=== PATIENT | female | born 1945 | race Two or more races ===

== ENCOUNTER 2021-01-13 09:30 | Outpatient (REF) | payer BC, OTHER, SELFPAY ==
--- NOTE | ~2021-01-13 | XR_ITS ---
EXAMINATION: XR SHOULDER, RIGHT CLINICAL INFORMATION: Right shoulder pain. Prior fracture. COMPARISON: None TECHNIQUE: Right shoulder is imaged in 3 views. FINDINGS: There is old healed fracture with posttraumatic deformity involving the proximal humeral shaft. This has been reduced with intramedullary mariana and 2 proximal interlocking prior studies. The distal end of the hardware is the on the [id number]. There is no osteolysis or destructive process. The glenohumeral joint is unremarkable. The acromioclavicular alignment is normal. There is some mild spurring from the lateral acromium likely origin deltoid. No visible rotator cuff calcifications. Right lung apex clear. XR/XR shoulder RT min 2V IMPRESSION: Old posttraumatic deformity with open reduction internal fixation proximal humeral shaft. Visualized hardware intact. Distal hardware beyond field of view. No visible rotator cuff calcification.
== END 2021-01-13 09:31 | disposition home or self-care (01) ==
LOC: HO.XRAY 09:30
PROVIDERS: PCP Internal Medicine Geriatric Medicine; Visit Provider Internal Medicine Geriatric Medicine
DX: M25.511 Pain in right shoulder (principal); S42.201S Unspecified fracture of upper end of right humerus, sequela; Z98.890 Other specified postprocedural states
CPT/HCPCS: 73030

== ENCOUNTER 2021-07-01 08:42 | Emergency (ER) | payer MEDICARE, OTHER, SELFPAY ==
--- NOTE | ~2021-07-01 | XR_ITS ---
EXAMINATION: XR RIBS, RIGHT CLINICAL INFORMATION: Right-sided rib pain COMPARISON: None TECHNIQUE: 3 views of the right ribs were obtained. FINDINGS: The cardiac and mediastinal contours are normal. The lungs are clear. There is no pleural effusion or pneumothorax. There are degenerative changes of the thoracic spine. There is an old healed fracture of the right proximal humeral shaft and orthopedic hardware intramedullary mariana and 2 proximal screws. No rib fracture is seen. XR/XR ribs RT min 3V w CXR1V IMPRESSION: No evidence for acute disease in the chest. No rib fracture seen.
--- NOTE | ~2021-07-01 | CT_ITS ---
EXAMINATION: CT ANGIOGRAM OF THE CHEST WITH AND WITHOUT CONTRAST (CT PULMONARY ANGIOGRAM FOR PE) CLINICAL INFORMATION: Reason for Exam right sided plueritic CP. pedal edema. hx breast CA COMPARISON: Radiographs from today. No prior CT. TECHNIQUE: Prior to contrast administration, noncontrast localization images were obtained. Subsequently, multidetector volumetric imaging was performed from the thoracic inlet to below the diaphragms following the administration of 65 mL Omnipaque 350 intravenous contrast. No contrast reaction reported Sagittal, coronal, and MIP oblique sagittal reformatted images were obtained on the CT workstation, uploaded to PACS, and reviewed. This CT examination was performed using dose optimization techniques as appropriate, variously including the following: *Automated exposure control *Adjustment of mA and/or kV according to patient size (this includes techniques or standardized protocols for targeted exams where dose is matched to indication/reason for exam; i.e. extremities or head) *Use of iterative reconstruction technique Total exam dose-length product 260 mGy-cm FINDINGS: QUALITY OF STUDY/CONTRAST BOLUS: Satisfactory. PULMONARY ARTERIES: No central or segmental pulmonary emboli. THORACIC AORTA: No aneurysm or dissection. LUNG: No focal consolidation, nodules or masses. The central airways are patent. Minimal dependent atelectasis bilaterally. PLEURA: No pleural effusion or pneumothorax. MEDIASTINUM: Normal heart size. No pericardial effusion. No hilar or mediastinal lymphadenopathy. No evidence of septal bowing or right heart strain. CHEST WALL/AXILLA: No axillary or internal mammary lymphadenopathy. OSSEOUS STRUCTURES: No acute or suspicious osseous abnormality. Degenerative changes noted throughout the spine. UPPER ABDOMEN: Unremarkable. No reflux of contrast into the hepatic veins to suggest elevated right heart pressures. CT/CT angio chest PE protocol IMPRESSION: No pulmonary embolism or other acute intrathoracic abnormality. VTE: negative
[2021-07-01 09:42] VITALS: BP 161/62; PULSE 80; RESP 18; TEMP 35.9; O2SAT 98; BMI 30.3
--- NOTE | 2021-07-01 10:54 | ECG_ITS ---
Test Reason : RIGHT SIDE RIB PAIN Blood Pressure : / mmHG Vent. Rate : 081 BPM Atrial Rate : 081 BPM P-R Int : 136 ms QRS Dur : 088 ms QT Int : 372 ms P-R-T Axes : 054 016 003 degrees QTc Int : 432 ms Normal sinus rhythm Normal ECG No previous ECGs available Referred By: Perla Santiago Electronically Signed By:Valdemar Shelley
--- NOTE | 2021-07-01 11:47 | ED_ITS ---
HPI - General Adult General Chief complaint: General Medical Stated complaint: rib inflammation-sent from [facility] Time Seen by Provider: 07/01/21 10:18 Source: patient Mode of arrival: ambulatory History of Present Illness HPI narrative: 76-year-old female with a past medical history breast CA in remission presenting to the ED complaining of a right sided rib pain x1 week worse with deep inspiration, coughing, movement, breathing. Denies known injury/trauma/fall. Patient also reports pedal/body edema/swelling, has been taking prednisone x2-3 months for new diagnosis of giant cell arteritis. Denies SOB, fever, cough, recent travel, history blood clots, cigarette smoking Onset (ago): week(s) Related Data Previous Rx's Medication Instructions Recorded acetaminophen 500 mg tablet 500 mg PO Q6H PRN #20 tab 07/01/21 (Tylenol Extra Strength) lidocaine 5 % topical patch 1 patch TOPICAL DAILY PRN #30 ea 07/01/21 (Lidoderm) MDD remove after 12 hours Allergies Allergy/AdvReac Type Severity Reaction Status Date / Time aspirin Allergy Unknown Verified 05/16/18 00:00 penicillin G Allergy Unknown Verified 05/16/18 00:00 Review of Systems Review of Systems: Constitutional: No Fever, No Chills, No Fatigue, No Malaise ENT/Mouth: No Ear Pain, No Nasal Congestion, No sore throat, No Rhinorrhea Eyes: No Eye Pain, No Swelling, No Redness Cardiovascular: + Chest Wall Pain, No SOB, No Edema, No Palpitations Respiratory: No Cough, No Dyspnea Gastrointestinal: No Nausea, No Vomiting, No Diarrhea, No Constipation, No Abd ominal pain Genitourinary: No Dysuria, No Hematuria, No Flank Pain Musculoskeletal: No joint pain, No Myalgias, No Joint Swelling Skin: No Skin Lesions, No rash Neuro: No Weakness, No Numbness, No Paresthesias, No Headache Yes all other systems are reviewed and are negative [facility] Past Medical History Attestation statement: The following information was validated with the patient. Social History Social History Advance Directives: Yes Advance Directives Information Provided: No Advance Directives on File: No Physical Exam Vital Signs: Vital Signs: Last Vital Signs Temp 97.9 F 07/01/21 16:49 Pulse 76 07/01/21 16:49 Resp 18 07/01/21 16:49 BP 150/74 H 07/01/21 16:49 Pulse Ox 97 07/01/21 16:49 BMI result Body Mass Index 30.3 Const: General: cooperative and healthy appearing Orientation/consciousness: patient oriented x3 Limitations: no limitations HENMT: Head: Yes normal to inspection Ears: hearing grossly normal bilaterally General nose exam: Normal external nose present Face and sinus: Yes normal facial exam Eyes: General: appearance normal, both eyes and all related structures EOM: EOMs intact bilaterally Neck: Neck: Yes normal visual inspection and Yes no meningeal signs Chest: Other: + right-sided lateral chest wall tenderness to palpation reproducing subjective complaint. No appreciable deformity/ecchymosis or erythema. No crepitus Chest palpation & inspection: no crepitus and tenderness Resp: Effort & Inspection: normal respiratory effort and not tachypneic Auscultation: clear to auscultation bilaterally, no crackles, no rales, no rhonchi and no wheezes Cardio: Rate: regular rate Heart sounds: S1 normal heart sound present and S2 normal heart sound present GI: Inspection: Yes normal to inspection Palpation (GI): Soft to palpation, nontender, no guarding and not rigid : General: Yes no CVA tenderness Back/Spine/Pelvis: Back: no CVA tenderness Skin: Rashes: no rashes Wounds: no wounds Neuro: General: patient oriented x3 and no meningeal signs Gait exam (Neuro): Normal gait present Extrem: Other: + bilateral pitting pedal edema General: Yes normal to inspection Course Course Course Narrative: XR ribs RT min 3V w CXR1V IMPRESSION: No evidence for acute disease in the chest. No rib fracture seen. -1250-- noted leukocytosis of 19.3 likely from current prednisone use rather than severe sepsis. No evidence of infection at this time. UA added. Will obtain lactic/ blood cultures. -initial troponin 40.7 > will obtain 3 hour repeat -1357--CT angio chest PE protocol IMPRESSION: No pulmonary embolism or other acute intrathoracic abnormality. VTE: negative -1418--lactic acidosis of 2.9 likely from Metformin use. Low concern for severe sepsis > will give L IVF -repeat troponin equivocal, [place] unlikely -1724--lactic acidosis resolved to 1.9 after L IVF. Results discussed with patient and patient's daughter at bedside including worrisome signs and symptoms and strict return precautions and needing close follow-up with patient PCP/neurology as scheduled Medical Decision Making MDM Narrative Medical decision making narrative: 76-year-old female with a past medical histor y breast CA in remission presenting to the ED complaining of a right sided rib pain x1 week worse with deep inspiration, coughing, movement, breathing. On exam vital signs stable, NAD, physical exam as above, right-sided chest wall tenderness to palpation noted, lungs CTA, abdomen soft/nontender. Bilateral pitting pedal edema noted. Concern for occult rib fracture vs contusion vs PE vs pneumonia vs CHF or pleural effusion. Symptoms atypical for ACS. Concern edema/swelling is from prednisone use Plan: EKG, labs, CXR with rib series, CTA to rule out PE Medical Records Medical records reviewed: Yes I reviewed the patient's medical records. Lab Data Lab results reviewed: Yes I reviewed the patient's lab results. Result diagrams: 07/01/21 12:04 07/01/21 12:04 Labs: Lab Results 07/01/21 07/01/21 07/01/21 Range/Units 12:04 12:04 12:04 WBC 19.3 H (4.8-10.8) X10*3/uL RBC 4.26 (4.20-5.50) X10*6/uL Hgb 13.1 (12.0-16.0) g/dl Hct 39.4 (37.0-47.0) % MCV 92.5 (80.0-98.0) fL MCH 30.8 (27.0-33.0) pg MCHC 33.2 (31.0-35.0) g/dl RDW 12.3 (11.0-16.0) % Plt Count 115 L (160-400) X10*3/uL MPV Not Reportable Immature Gran % (Auto) 1.0 H (0.0-0.4) % Neut % (Auto) 91.6 H (45-73) % Lymph % (Auto) 4.9 L (20-40) % [place] % (Auto) 2.2 (2-11) % Eos % (Auto) 0.1 (0-4) % Baso % (Auto) 0.2 (0-2) % Lymph # (Auto) 1.0 L (1.2-4.9) X10*3/uL [place] # (Auto) 0.4 (0.1-1.2) X10*3/uL Eos # (Auto) 0.0 (0.0-0.4) X10*3/uL Baso # (Auto) 0.0 (0.0-0.2) X10*3/uL Abs Immat Gran (auto) 0.20 H (0.00-0.03) X10*3/uL Absolute Neuts (auto) 17.7 H (2.0-8.3) x10*3/uL Absolute Nucleated RBC 0.000 (0.0-0.012) X10*3/uL Nucleated RBC % (auto) 0.0 (0.0-0.2) /100WBC Smear Tech's Comments VERIFIED PT 10.9 (9.9-13.0) SEC INR 1.0 (0.9-1.1) APTT 29.1 (24.1-38.0) SEC Sodium 140 (135-145) mmol/L Potassium 4.2 (3.3-5.1) mmol/L Chloride 102 (96-108) mmol/L Carbon Dioxide 27 (22-29) mmol/L Anion Gap 15 (12-20) BUN 16 (9-16) mg/dL Creatinine 1.10 (0.5-1.4) mg/dL Estim Creat Clear Calc 40.6 Estimated GFR 48 Random Glucose 277 H (60-115) mg/dL Lactic Acid (0.5-2.0) mmol/L Lactic Acid Fup @ 2Hr (0.5-2.0) mmol/L Calcium 9.8 (8.4-10.2) mg/dL Magnesium 1.8 (1.6-2.6) mg/dL Total Bilirubin 0.6 (0.0-1.0) mg/dL Direct Bilirubin 0.3 (0.0-0.5) mg/dL AST 19 (5-31) U/L ALT 32 H (0-31) U/L Alkaline Phosphatase 85 (39-117) U/L Troponin I High Sens (<3.5-17.0) ng/L B-Natriuretic Peptide (<100) pg/mL Total Protein 6.7 (6.5-8.0) g/dL Albumin 4.1 (3.5-5.0) g/dL Urine Color Urine Appearance Urine pH (5.0-8.0) Ur Specific [place] (1.005-1.025) Urine Protein (NEG-TRACE) MG/DL Urine Glucose (UA) (NEG) MG/DL Urine Ketones (NEG) MG/DL Urine Blood (NEG) Urine Nitrite (NEG) Ur Leukocyte Esterase (NEG) Urine RBC (0) /HPF Urine WBC (0-4) /HPF Ur Squamous Epith Cells /LPF Urine Bacteria /LPF Urine Mucus /LPF 07/01/21 07/01/21 07/01/21 Range/Units 12:04 13:58 15:28 WBC (4.8-10.8) X10*3/uL RBC (4.20-5.50) X10*6/uL Hgb (12.0-16.0) g/dl Hct (37.0-47.0) % MCV (80.0-98.0) fL MCH (27.0-33.0) pg MCHC (31.0-35.0) g/dl RDW (11.0-16.0) % Plt Count (160-400) X10*3/uL MPV Immature Gran % (Auto) (0.0-0.4) % Neut % (Auto) (45-73) % Lymph % (Auto) (20-40) % [place] % (Auto) (2-11) % Eos % (Auto) (0-4) % Baso % (Auto) (0-2) % Lymph # (Auto) (1.2-4.9) X10*3/uL [place] # (Auto) (0.1-1.2) X10*3/uL Eos # (Auto) (0.0-0.4) X10*3/uL Baso # (Auto) (0.0-0.2) X10*3/uL Abs Immat Gran (auto) (0.00-0.03) X10*3/uL Absolute Neuts (auto) (2.0-8.3) x10*3/uL Absolute Nucleated RBC (0.0-0.012) X10*3/uL Nucleated RBC % (auto) (0.0-0.2) /100WBC Smear Tech's Comments PT (9.9-13.0) SEC INR (0.9-1.1) APTT (24.1-38.0) SEC Sodium (135-145) mmol/L Potassium (3.3-5.1) mmol/L Chloride (96-108) mmol/L Carbon Dioxide (22-29) mmol/L Anion Gap (12-20) BUN (9-16) mg/dL Creatinine (0.5-1.4) mg/dL Estim Creat Clear Calc Estimated GFR Random Glucose (60-115) mg/dL Lactic Acid 2.9 H* (0.5-2.0) mmol/L Lactic Acid Fup @ 2Hr (0.5-2.0) mmol/L Calcium (8.4-10.2) mg/dL Magnesium (1.6-2.6) mg/dL Total Bilirubin (0.0-1.0) mg/dL Direct Bilirubin (0.0-0.5) mg/dL AST (5-31) U/L ALT (0-31) U/L Alkaline Phosphatase (39-117) U/L Troponin I High Sens 40.7 H 38.2 H (<3.5-17.0) ng/L B-Natriuretic Peptide 59 (<100) pg/mL Total Protein (6.5-8.0) g/dL Albumin (3.5-5.0) g/dL Urine Color Urine Appearance Urine pH (5.0-8.0) Ur Specific [place] (1.005-1.025) Urine Protein (NEG-TRACE) MG/DL Urine Glucose (UA) (NEG) MG/DL Urine Ketones (NEG) MG/DL Urine Blood (NEG) Urine Nitrite (NEG) Ur Leukocyte Esterase (NEG) Urine RBC (0) /HPF Urine WBC (0-4) /HPF Ur Squamous Epith Cells /LPF Urine Bacteria /LPF Urine Mucus /LPF 07/01/21 07/01/21 Range/Units 15:48 16:49 WBC (4.8-10.8) X10*3/uL RBC (4.20-5.50) X10*6/uL Hgb (12.0-16.0) g/dl Hct (37.0-47.0) % MCV (80.0-98.0) fL MCH (27.0-33.0) pg MCHC (31.0-35.0) g/dl RDW (11.0-16.0) % Plt Count (160-400) X10*3/uL MPV Immature Gran % (Auto) (0.0-0.4) % Neut % (Auto) (45-73) % Lymph % (Auto) (20-40) % [place] % (Auto) (2-11) % Eos % (Auto) (0-4) % Baso % (Auto) (0-2) % Lymph # (Auto) (1.2-4.9) X10*3/uL [place] # (Auto) (0.1-1.2) X10*3/uL Eos # (Auto) (0.0-0.4) X10*3/uL Baso # (Auto) (0.0-0.2) X10*3/uL Abs Immat Gran (auto) (0.00-0.03) X10*3/uL Absolute Neuts (auto) (2.0-8.3) x10*3/uL Absolute Nucleated RBC (0.0-0.012) X10*3/uL Nucleated RBC % (auto) (0.0-0.2) /100WBC Smear Tech's Comments PT (9.9-13.0) SEC INR (0.9-1.1) APTT (24.1-38.0) SEC Sodium (135-145) mmol/L Potassium (3.3-5.1) mmol/L Chloride (96-108) mmol/L Carbon Dioxide (22-29) mmol/L Anion Gap (12-20) BUN (9-16) mg/dL Creatinine (0.5-1.4) mg/dL Estim Creat Clear Calc Estimated GFR Random Glucose (60-115) mg/dL Lactic Acid (0.5-2.0) mmol/L Lactic Acid Fup @ 2Hr 1.9 (0.5-2.0) mmol/L Calcium (8.4-10.2) mg/dL Magnesium (1.6-2.6) mg/dL Total Bilirubin (0.0-1.0) mg/dL Direct Bilirubin (0.0-0.5) mg/dL AST (5-31) U/L ALT (0-31) U/L Alkaline Phosphatase (39-117) U/L Troponin I High Sens (<3.5-17.0) ng/L B-Natriuretic Peptide (<100) pg/mL Total Protein (6.5-8.0) g/dL Albumin (3.5-5.0) g/dL Urine Color YELLOW Urine Appearance HAZY Urine pH 7.0 (5.0-8.0) Ur Specific [place] 1.010 (1.005-1.025) Urine Protein NEG (NEG-TRACE) MG/DL Urine Glucose (UA) >=1000 H (NEG) MG/DL Urine Ketones NEG (NEG) MG/DL Urine Blood NEG (NEG) Urine Nitrite NEG (NEG) Ur Leukocyte Esterase NEG (NEG) Urine RBC 0 (0) /HPF Urine WBC 0-2 (0-4) /HPF Ur Squamous Epith Cells TRACE /LPF Urine Bacteria TRACE /LPF Urine Mucus TRACE /LPF ECG Data Attestation: I personally reviewed and interpreted this ECG as follows: Prior ECG tracings: not available for review Interpretation: EKG normal sinus rhythm at a rate of 81. HI interval 136. QTC 432. Inverted T-wave in lead 3. no STEMI Discharge Plan Discharge Clinical Impression: Rib pain on right side Patient Disposition: Home, Self-Care Instructions: Prednisone (By mouth), Chest Pain (ED) Additional Instructions: Your blood work was reassuring today in the emergency department Your CT scan was negative for any blood clot, pneumonia, or fracture The swelling you have diffusely over your body is likely from the prednisone yo ure taking, please call your doctor to make aware/for close follow-up Please also follow-up with neurology as scheduled If symptoms persist or worsen, constant worsening chest pain, developed shortne ss of breath, fever, worsening swelling in her legs return to the emergency Prescriptions: New acetaminophen [Tylenol Extra Strength] 500 mg tablet 500 mg PO Q6H PRN (Reason: pain or fever) Qty: 20 RF: 0 lidocaine [Lidoderm] 5 % adhesive patch,medicated 1 patch topical DAILY MDD remove after 12 hours PRN (Reason: pain) Qty: 30 RF: 0 Referrals: Name,MD Simon [Primary Care Provider] - 2 days
[2021-07-01 12:10] LABS: Eosinophils Percent Auto 0.1 % (0-4); MANUAL DIFF FLAG SCAN; Mean Corpuscular HGB Conc 33.2 g/dl (31.0-35.0); Mean Corpuscular Hemoglobin 30.8 pg (27.0-33.0); Mean Corpuscular Volume 92.5 fL (80.0-98.0); Monocytes Absolute Auto 0.4 X10*3/uL (0.1-1.2); Monocytes Percent Auto 2.2 % (2-11); PLT CLUMP 1; SCAN SMEAR FLAG 1
[2021-07-01 12:12] LABS: Basophils Percent Auto 0.2 % (0-2); Hematocrit 39.4 % (37.0-47.0); Hemoglobin 13.1 g/dl (12.0-16.0); Lymphocytes Percent Auto 4.9 % (20-40); Neutrophils Absolute Auto 17.7 x10*3/uL (2.0-8.3); Neutrophils Percent Auto 91.6 % (45-73); Red Blood Count 4.26 X10*6/uL (4.20-5.50); Red Cell Distribution Width 12.3 % (11.0-16.0)
[2021-07-01 12:17] VITALS: BP 147/69; PULSE 81; RESP 18; TEMP 36.6; O2SAT 98
[2021-07-01 12:18] LABS: Prothrombin Time 10.9 SEC (9.9-13.0)
[2021-07-01 12:21] LABS: Partial Thromboplastin Time 29.1 SEC (24.1-38.0)
[2021-07-01 12:29] LABS: Alanine Aminotransferase 32 U/L (0-31); Albumin Level 4.1 g/dL (3.5-5.0); Alkaline Phosphatase 85 U/L (39-117); Anion Gap 15 (12-20); Aspartate Amino Transferase 19 U/L (5-31); Bilirubin Direct 0.3 mg/dL (0.0-0.5); Bilirubin Total 0.6 mg/dL (0.0-1.0); Blood Urea Nitrogen 16 mg/dL (9-16); Calcium 9.8 mg/dL (8.4-10.2); Carbon Dioxide 27 mmol/L (22-29); Chloride 102 mmol/L (96-108); Creatinine Clr Calc Pharmacy 40.6; Estimated Glomerular Filt Rate 48; Glucose Random 277 mg/dL (60-115); Magnesium 1.8 mg/dL (1.6-2.6); Platelet Count 115 X10*3/uL (160-400); Potassium 4.2 mmol/L (3.3-5.1); SLIDE REVIEW VERIFIED; Sodium 140 mmol/L (135-145); Total Protein 6.7 g/dL (6.5-8.0); White Blood Count 19.3 X10*3/uL (4.8-10.8)
[2021-07-01 12:31] LABS: B Type Natriuretic Peptide 59 pg/mL (<100); Troponin-I High Sensitivity 40.7 ng/L (<3.5-17.0)
[2021-07-01] MEDS: iohexoL 350 MG/ML 100 ML INFUS..BTL IV (13:13)
[2021-07-01 14:16] LABS: Lactic Acid 2.9 mmol/L (0.5-2.0)
[2021-07-01] MEDS: Lidocaine 4 % Patch ADH..PATCH 1 PATCH TRANSDERMA (14:32)
[2021-07-01] MEDS: 0.9 % Sodium Chloride 1,000 ML 999 ML IVCONT (14:41)
[2021-07-01 15:55] LABS: Troponin-I High Sensitivity 38.2 ng/L (<3.5-17.0)
[2021-07-01 15:58] LABS: Appearance Urine HAZY; Color Urine YELLOW; Glucose Urine UA >=1000 MG/DL (NEG); Leukocyte Esterase Urine NEG (NEG); Nitrite Urine NEG (NEG); Urine Blood NEG (NEG); Urine Ketones NEG (NEG); Urine Protein NEG (NEG-TRACE)
[2021-07-01 16:03] LABS: Reflex Lactate? Lactic Acid Added
[2021-07-01 16:10] LABS: Mucus Urine TRACE /LPF; Squamous Epithelial Cell Urine TRACE /LPF
[2021-07-01 16:11] LABS: Bacteria Urine TRACE /LPF; RBC Urine 0 /HPF (0); WBC Urine 0-2 /HPF (0-4)
[2021-07-01 16:20] VITALS: BP 149/78; PULSE 75; RESP 18; TEMP 36.4; O2SAT 97
[2021-07-01 16:49] VITALS: BP 150/74; PULSE 76; RESP 18; TEMP 36.6; O2SAT 97
[2021-07-01 17:14] LABS: ~Lactic Acid-LAB USE ONLY 1.9 mmol/L (0.5-2.0)
== END 2021-07-01 17:51 | disposition home or self-care (01) ==
PROVIDERS: Physician Assistant; Emergency Provider Emergency Medicine; PCP Internal Medicine Geriatric Medicine
DX: R07.81 Pleurodynia (principal); D72.829 Elevated white blood cell count, unspecified
CPT/HCPCS: 36415; 71101; 71275; 80048; 80076; 81001; 83605; 83735; 83880; 84484; 85025; 85610; 85730; 87040; 93005; 96360; 99284; Q9967

== ENCOUNTER 2021-08-12 09:06 | Outpatient (REF) | payer MEDICARE, OTHER, SELFPAY ==
--- NOTE | ~2021-08-12 | XR_ITS ---
EXAMINATION: XR CHEST XR RIB SERIES, RIGHT CLINICAL INFORMATION: Pleurodynia. Right upper quadrant pain. COMPARISON: CTA chest dated 07/13/2021. TECHNIQUE: PA and lateral views of the chest and PA and bilateral oblique views of the right hemithorax FINDINGS: Normal symmetric lung volumes. No parenchymal consolidation. No pleural effusion. No pneumothorax. Cardiomediastinal silhouette and pulmonary vascularity are within normal limits. No acute osseous abnormalities. No displaced rib fractures. A BB marker is present along the right lateral chest wall. No underlying osseous abnormalities. Intramedullary mariana redemonstrated within the right humerus transfixing a healed fracture with residual deformity of the humeral diaphysis. XR/XR chest 2V IMPRESSION: Lungs are clear. No rib fractures.
--- NOTE | ~2021-08-12 | XR_ITS ---
EXAMINATION: XR CHEST XR RIB SERIES, RIGHT CLINICAL INFORMATION: Pleurodynia. Right upper quadrant pain. COMPARISON: CTA chest dated 07/13/2021. TECHNIQUE: PA and lateral views of the chest and PA and bilateral oblique views of the right hemithorax FINDINGS: Normal symmetric lung volumes. No parenchymal consolidation. No pleural effusion. No pneumothorax. Cardiomediastinal silhouette and pulmonary vascularity are within normal limits. No acute osseous abnormalities. No displaced rib fractures. A BB marker is present along the right lateral chest wall. No underlying osseous abnormalities. Intramedullary mariana redemonstrated within the right humerus transfixing a healed fracture with residual deformity of the humeral diaphysis. XR/XR ribs RT 2V IMPRESSION: Lungs are clear. No rib fractures.
== END 2021-08-12 09:07 | disposition home or self-care (01) ==
LOC: HO.XRAY 09:06
PROVIDERS: PCP Internal Medicine Geriatric Medicine; Visit Provider Family Medicine
DX: R07.81 Pleurodynia (principal); R10.11 Right upper quadrant pain; Z85.3 Personal history of malignant neoplasm of breast
CPT/HCPCS: 71046; 71100

== ENCOUNTER 2021-08-25 13:31 | Outpatient (REF) | payer MEDICARE, OTHER, SELFPAY ==
--- NOTE | ~2021-08-25 | MM_ITS ---
EXAMINATION: MM DIAGNOSTIC DIGITAL BREAST TOMOSYNTHESIS, BILATERAL US DIAGNOSTIC ULTRASOUND BREAST, BILATERAL CLINICAL INFORMATION: Right breast cancer status post lumpectomy and radiation, 2002. Due for yearly. Right-sided thoracoabdominal wall pain. At time of appointment, patient also notes left breast pain. No discharge or palpable mass. COMPARISON: Mammography: 04/12/2018; Outside reports bilateral digital mammography and bilateral breast ultrasound 06/11/2020 ([facility], [place] - reports only). Comparison also made with right rib series 08/12/2021 and CTA chest 07/01/2021. TECHNIQUE: Digital breast tomosynthesis is performed in both the craniocaudal and mediolateral oblique views along with computer-aided detection (CAD). Synthesized 2D images are generated from the tomosynthesis. Ultrasound left breast is performed all 4 quadrants using grayscale imaging and color Doppler. Patient noted diffuse pain without focality. No discharge. Ultrasound right breast/chest is targeted to the area of symptoms corresponding to the right lateral thoracoabdominal wall. Both sides imaged using grayscale imaging and color Doppler without and with harmonics. FINDINGS: There are scattered areas of fibroglandular density (ACR BI-RADS breast composition Category b). Breast tissue composition borders on predominantly fatty. Background stromal and fibroglandular densities are stable. There is no interval mass or developing density or architectural abnormality on either side. There is no skin thickening or coarsening of the Mohsen's ligaments. There are post therapy changes on the right with reduced breast size and mild stable scarring. Scattered bilateral benign round, coarse, and ductal secretory calcifications are again seen. No significant changes. Ultrasound left breast shows no cystic or solid mass or architectural abnormality. No focal duct ectasia. There is no skin thickening or edema tracking in soft tissue planes. Ultrasound right lateral thoracoabdominal wall shows no cystic or solid mass. There is no skin thickening or edema tracking in soft tissue planes. Results are discussed with the patient at time of visit, using an chair installer. MM/MM tomosynthesis diagnostic BI IMPRESSION: 1. No mammographic evidence of malignancy or inflammatory changes. 2. Post therapy changes on the right. 3. Unremarkable bilateral ultrasound. ASSESSMENT: BI-RADS 2: Benign RECOMMENDATION: 1. Patient's bilateral pain should be managed based on the clinical impression. 2. Otherwise, routine annual screening mammography. This patient's information was entered into a reminder system with a target due date for their next mammogram.
== END 2021-08-25 13:32 | disposition home or self-care (01) ==
LOC: HO.MAMMO 13:31
PROVIDERS: PCP Internal Medicine Geriatric Medicine; Visit Provider Internal Medicine Geriatric Medicine
DX: N64.4 Mastodynia (principal); Z85.3 Personal history of malignant neoplasm of breast
CPT/HCPCS: 76642; 77062; 77066

== ENCOUNTER 2021-09-15 09:05 | Outpatient (REF) | payer MEDICARE, OTHER, SELFPAY ==
--- NOTE | ~2021-09-15 | US_ITS ---
EXAMINATION: US ABDOMEN COMPLETE CLINICAL INFORMATION: Right upper quadrant pain. COMPARISON: None TECHNIQUE: Real-time imaging of the abdominal viscera. FINDINGS: PANCREAS: Normal. ABDOMINAL AORTA: The proximal, mid, and distal segments are normal in caliber. INFERIOR VENA CAVA: Visualized portions are normal. LIVER: The liver is normal in size. The liver contour is normal. Liver echotexture is increased. No focal hepatic lesion. There is no intrahepatic biliary duct dilatation seen. GALLBLADDER: The gallbladder is normal in size. No gallstones are seen. The gallbladder wall is slightly thickened measuring 6 mm and appears edematous. The dental technologist does not describe the patient is tender over the gallbladder. COMMON BILE DUCT: Normal in caliber measuring 0.3 cm in diameter. RIGHT KIDNEY: Normal No hydronephrosis. No renal calculi or focal parenchymal lesions. The kidney measures 10.2 cm in maximum dimension. LEFT KIDNEY: Normal No hydronephrosis. No renal calculi or focal parenchymal lesions. The kidney measures 10.7 cm in maximum dimension. SPLEEN: Normal. The spleen measures 6.7 cm in maximum dimension. FREE FLUID: None. US/US abdomen complete IMPRESSION: Echogenic liver. Differential would include fatty infiltration and liver disease. Thickened edematous gallbladder wall. No gallstone seen. Differential would include acalculus cholecystitis, cholangitis, changes related to liver disease and low albumin. Clinical correlation recommended. This could be further evaluated with HIDA scan if clinically indicated.
== END 2021-09-15 09:06 | disposition home or self-care (01) ==
LOC: HO.US 09:05
PROVIDERS: PCP Internal Medicine Geriatric Medicine; Visit Provider Family Medicine
DX: R10.11 Right upper quadrant pain (principal)
CPT/HCPCS: 76700

== ENCOUNTER → 2021-10-08 12:55 | Outpatient (BNVA) | payer MEDICARE, OTHER, SELFPAY | PROVIDERS: PCP Internal Medicine Geriatric Medicine; Referring Provider Internal Medicine Geriatric Medicine; Visit Provider Surgery | DX: R10.11 Right upper quadrant pain (principal) | CPT/HCPCS: 99202 ==

== ENCOUNTER → 2022-04-28 08:15 | Outpatient (REF) | payer MEDICARE, OTHER, SELFPAY ==
--- NOTE | 2022-04-28 08:47 | CA_ITS ---
Transthoracic Echocardiogram Patient (Last, First, Middle): Afshan Coleman, Gender: Female Date of : 1945 Age: 77 Procedure Date: 04/28/2022 Procedure Type: Transthoracic Echocardiogram Location: OP Height: 157.48 cm Weight: 71.22 kg BSA: 1.72 m2 Heart Rate: 55 bpm BP: 140 / 80 mmHg Lumber Racker: TORREY Referring MD: Simon Bryant MD Asphalt Dauber: Jero Sahu MD Symptoms: CARDIAC MURMUR Study Quality: Adequate ECG Rhythm: Bradycardia Conclusions: - 1. Normal LV systolic function with impaired relaxation filling pattern suggestive increased LVEDP 2. Fibrocalcific aortic valve changes noted and mitral and calcification noted with normal cardiac valvular Doppler 3. Normal RV systolic pressure 4. No pericardial effusion Findings Left Ventricle Normal left ventricular size, thickness, and systolic function. The visually estimated ejection fraction is between 65-70%. Spectral Doppler is indicative of an impaired relaxation filling pattern. Elevated left ventricular end diastolic pressure. E/E prime ratio is between 8 and 15 consistent with indeterminate filling pressures. Right Ventricle Normal right ventricular cavity size and systolic function. Atria The left atrium is normal in size. 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 There is no evidence of interatrial shunt. The right atrium is normal in size. Aortic Valve There is mild calcification of the aortic valve. There is moderate thickening of the aortic valve. There is no aortic valve stenosis. There is no aortic valve regurgitation. Mitral Valve There is mild anterior and posterior mitral leaflet thickening. There is mild mitral annular calcification. There is trace mitral valve regurgitation. There is no mitral valve stenosis. Pulmonic Valve The pulmonic valve was not well visualized. Tricuspid Valve Likely normal tricuspid valve structure and function. There is trace tricuspid valve regurgitation. The right ventricular systolic pressure is normal. The right ventricular systolic pressure is 25 mmHg. Normal right atrial pressure. There is no evidence of pulmonary hypertension. Great Vessels All visible segments of the aorta are normal in size. The pulmonary artery was not well visualized. Venous The inferior vena cava is normal in size and collapses greater than 50% with inspiration. Pericardium/Pleural There is no evidence of pericardial effusion. Prior Study Comparison No prior study available for comparison. Measurements 2D Linear Measurements IVSd: 0.86 0.6-0.9/0.6-1.0 cm LVIDd: 3.73 3.9-5.3/4.2-5.9 cm LVIDd Index: 2.17 2.4-3.2/2.2-3.1 cm/m2 LVIDs: 2.14 2.0-3.6 cm LVPWd: 1.02 0.7-1.1 cm LA Diam: 3.00 2.7-3.8/3.0-4.0 cm LAIDs Index: 1.74 1.5-2.3 cm/m2 LV Mass: 166.21 67-162/88-224 g LV Mass Index: 96.63 43-95/49-115 g/m2 LVOT Diam: 1.80 3.0+(-)1.3 cm 2D Systolic Function EF 4C: 69.10 >55% EF 2C: 71.00 >55% EF BiP: 69.80 >55% Mitral Valve MV Pk E: 0.83 MV PK A: 1.02 MV Decel Time: 178.00 E/A: 0.80 E'Lateral: 7.07 E'Medial: 6.09 E/E' Med: 13.60 E/E' Lat: 11.70 PHT: 52.00 MVA PHT: 4.23 Decel [place]: 4.65 Aortic Valve AoV Pk Jonathan: 1.61 AoV Mn Jonathan: 1.10 AoV VTI: 0.40 AoV Pk Grad: 10.00 Aov Mn Grad: 6.00 SIRI Cont.VTI: 2.07 LVOT LVOT Pk Jonathan: 1.35 LVOT Mn Jonathan: 0.88 LVOT VTI: 0.32 LVOT Pk Grad: 7.00 LVOT Mn Grad: 4.00 LVOT Diam: 1.80 LVOT Area: 2.54 Diastolic Function MV Pk E: 0.83 MV Pk A: 1.02 E/A: 0.80 E'Medial: 6.09 E/E' Med: 13.60 E' Laterial: 7.07 E/E' Lat: 11.70 Right Ventricle TAPSE (mm): 20.70 TVS' Jonathan: 11.20 Tricuspid Valve TR Pk Jonathan: 2.37 TR Pk Grad: 22.00 RA Press: 3.00 RVSP: 25.00 Great Vessels Aorta Sinus of Valsalva: 3.50 2.0-3.5 cm Ao Asc: 3.60 2.1-3.4 cm Pulmonary Valve PV Pk Jonathan: 0.94 Peak PV Grad: 4.00 Updated in Other Vendor System with Status of Final Jero Sahu MD electronically signed on 04/29/2022 4:14:18 PM with status of Final
== END ==
LOC: HO.CARD 08:15
PROVIDERS: PCP Internal Medicine Geriatric Medicine; Visit Provider Internal Medicine Geriatric Medicine
DX: R01.1 Cardiac murmur, unspecified (principal)
CPT/HCPCS: 93306